=== PATIENT | male | born 1980 | race African-American/Black ===

== ENCOUNTER 2024-10-30 20:16 | Inpatient (IN) ==
--- NOTE | 2024-10-30 20:33 | Emergency Department Note ---
History of Present Illness General Chief complaint: Shoulder Dislocation Stated complaint: DISLOCATED SHOULDER (R) Time Seen by Provider: 10/30/24 20:23 History of Present Illness Maximum Pain Intensity: 10 This is a 43-year-old male that presents to the emergency department via private vehicle accompanied by correctional supply supervisor x 2 with complaints of "right shoulder pain". Patient currently incarcerated at local [facility] correctional facility. Patient notes that he was in the yard, working out doing bench presses. He felt a pop in the right shoulder. Since that time he notes progressive right shoulder pain now to a point where the pain is a 10/10 in the right shoulder. He has tried Motrin with minimal relief. No numbness or tingling. No chest pain or shortness of breath. No fevers or chills. Home Medications Medication Instructions Recorded Confirmed Type ascorbic acid (vitamin C) 500 mg 500 mg PO DAILY 10/31/24 10/31/24 History tablet (Vitamin C) budesonide-formoterol HFA 160 2 puff inhalation BID 10/31/24 10/31/24 History mcg-4.5 mcg/actuation aerosol inhaler (Symbicort) chlorthalidone 25 mg tablet 25 mg PO DAILY 10/31/24 10/31/24 History Allergies Allergy/AdvReac Type Severity Reaction Status Date / Time No Known Allergies Allergy Verified 10/30/24 20:46 Past Med/Surg History Problem List (Updated 10/31/24 @ 03:33 by Bandar Hart PA-C) Elevated AST (SGOT) (Acute) Elevated CK (Acute) Acute pain of right shoulder (Acute) Social History Smoking Status: Current every day smoker Tobacco Type: E-cigarettes / Vaping Second Hand Exposure: No; Do You Dip or Chew Tobacco: No; Tobacco Cessation Education Requested by Patient: No Hx Alcohol Use: No Hx Substance Use: No Preferred Language: Mongolian Communication Ability: Effective Dog Bather Required: No Beliefs That Will Affect Care: None Current Living Situation Comment: [facility] correction. Other Information That Helps Us Care for You: No Feels Safe at Home: Yes Safety Concerns: Feels Safe At This Time Assistive Devices: None Review of Systems A total of 10 systems reviewed and were otherwise negative Physical Exam Vital Signs Vital Signs - 24 hr 10/30/24 20:19 10/31/24 00:00 10/31/24 00:30 Temperature 36.5 C Temperature Source Temporal Artery Scan Pulse Rate 66 Pulse Rate [Finger] 56 L Respiratory Rate 18 16 Respiratory Effort / Characteristics Non-Labored Spontaneous Non-Labored Spontaneous Respiratory Depth Normal Normal Respiratory Pattern Regular Regular Blood Pressure 140/94 Blood Pressure [Left Arm] 135/95 Blood Pressure Mean 109 Blood Pressure Mean [Left Arm] 108 Pulse Oximetry 95 97 97 Oxygen Delivery Method Room Air Room Air Room Air Sepsis Recent Fever Within 48 Hours No Sepsis New/Unexplained Change in Mental Status N/A Sepsis Action Taken by Nursing No Action Required 10/31/24 01:00 Temperature Temperature Source Pulse Rate Pulse Rate [Finger] 60 Respiratory Rate 18 Respiratory Effort / Characteristics Non-Labored Spontaneous Respiratory Depth Normal Respiratory Pattern Regular Blood Pressure Blood Pressure [Left Arm] 142/87 H Blood Pressure Mean Blood Pressure Mean [Left Arm] 105 Pulse Oximetry 94 Oxygen Delivery Method Room Air Sepsis Recent Fever Within 48 Hours Sepsis New/Unexplained Change in Mental Status Sepsis Action Taken by Nursing VITAL SIGNS - Vital signs and nursing notes were reviewed. Hypertensive, otherwise stable and afebrile. GENERAL -43-year-old male appearing his stated age who is in no acute distress. Communicates well with provider and answers questions appropriately. SKIN - Without rashes. No meningeal or petechial rash. The musculature overlying the right shoulder region is tense without break in the integument. Tattoo to the right deltoid region noted. HEAD - NC/AT. EYES - PERRL with EOMI bilaterally. Sclera anicteric. EARS - No deformities of external structures noted on gross examination bilaterally. NOSE - Midline and without cyanosis. No epistaxis or purulent drainage noted. MOUTH/OROPHARYNX - Without perioral cyanosis. NECK - Neck with FROM. No nuchal rigidity. LUNGS - CTA CARDIAC - RRR EXTREMITIES - No clubbing or peripheral cyanosis. Patient holds the right arm in a position of comfort with the right elbow flexed at 90 degrees across the abdomen. There is tenderness to palpation overlying the right deltoid, right superior trapezius region. There is no evidence of dislocation to the right shoulder. Right clavicle region nontender. Patient with decreased active range of motion of the right shoulder secondary to pain. 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 Right radial pulse within normal limits. +5/5 strength noted in UE/LE bilaterally. NEUROLOGIC -sensory intact to light touch throughout the right upper extremity without deficit. PSYCH -alert, oriented and pleasant on exam. Course Administered Medications Sodium Chloride (Nss) 1,000 mls @ 100 mls/hr IV .Q10H TORI Stop: 11/01/24 02:59 Last Admin: 10/31/24 02:40 Dose: 100 mls/hr Documented By: GHAZALA Oxycodone HCl (Oxycodone Hcl Ir 5 Mg Tab (Immediate Release)) 5 - 10 mg PO QID PRN PRN Reason: Pain Stop: 11/14/24 01:48 Last Admin: 10/31/24 03:10 Dose: 10 mg Documented By: GHAZALA Discontinued Medications Hydromorphone HCl (Hydromorphone Inj 1 Mg/Ml Syringe) 1 mg IV NOW STA Stop: 10/30/24 21:34 Last Admin: 10/30/24 21:59 Dose: 1 mg Documented By: ARNULFO Sodium Chloride (Nss) 1,000 mls @ 999 mls/hr IV .Q1H1M ONE Stop: 10/31/24 01:09 Last Infusion: 10/31/24 01:11 Dose: Infused Documented By: Admin: 10/31/24 00:13 Dose: 999 mls/hr Documented By: TAYLOR Sodium Chloride (Nss) 500 mls @ 500 mls/hr IV .Q1H ONE Stop: 10/31/24 02:02 Last Infusion: 10/31/24 02:02 Dose: Infused Documented By: Admin: 10/31/24 01:10 Dose: 500 mls/hr Documented By: TAYLOR Sodium Chloride (Nss) 1,000 mls @ 999 mls/hr IV .Q1H1M ONE Stop: 10/31/24 02:21 Last Admin: 10/31/24 01:27 Dose: Not Given Documented By: TAYLOR Ketorolac Tromethamine (Ketorolac Tromethamine 15 Mg/Ml Vial) 15 mg IV NOW ONE Stop: 10/30/24 23:29 Last Admin: 10/30/24 23:33 Dose: 15 mg Documented By: TAYLOR Morphine Sulfate (Morphine Sulfate 4 Mg/Ml 1 Ml Carp\\Vial) 4 mg IV NOW STA Stop: 10/31/24 01:20 Last Admin: 10/31/24 01:27 Dose: 4 mg Documented By: TAYLOR Oxycodone HCl (Oxycodone Hcl Ir 5 Mg Tab (Immediate Release)) 5 mg PO NOW STA Stop: 10/30/24 20:33 Last Admin: 10/30/24 20:39 Dose: 5 mg Documented By: MAURILIO Medical Decision Making Laboratory Data 10/30/24 21:56 10/30/24 21:56 Lab Results 10/30/24 Range/Units 21:56 WBC 11.85 H (4.8-10.8) K/ul RBC 5.25 (4.70-6.10) M/uL Hgb 15.4 (14.0-18.0) g/dl Hct 45.9 (42.0-52.0) % MCV 87.4 (80.0-100.0) fL MCH 29.3 (25.0-34.0) pg MCHC 33.6 (32.0-36.0) g/dL RDW Std Deviation 42.0 (36.4-46.3) fL RDW Coeff of Avel 13.2 (11.5-14.5) % Plt Count 195 (130-400) K/uL MPV 10.6 (9.4-12.4) fL Immature Gran % (Auto) 0.3 % Neut % (Auto) 88.9 % Lymph % (Auto) 5.3 % [place] % (Auto) 5.0 % Eos % (Auto) 0.2 % Baso % (Auto) 0.3 % Neut # (Auto) 10.55 H (1.40-6.50) K/uL Lymph # (Auto) 0.63 L (1.20-3.40) K/uL [place] # (Auto) 0.59 (0.11-0.59) K/uL Eos # (Auto) 0.02 (0.00-0.50) K/uL Baso # (Auto) 0.03 (0.00-0.20) K/uL Immature Gran # (Auto) 0.03 (0.01-0.20) K/uL Sodium 138 (136-145) mmol/L Potassium 3.7 (3.5-5.1) mmol/L Chloride 103 (98-107) mmol/L Carbon Dioxide 31 (21-32) mmol/L Anion Gap 4 (3-11) BUN 12 (6-23) mg/dl Creatinine 1.34 (0.6-1.4) mg/dl Est Cr Clr Drug Dosing 98.9 ml/min eGFR 67.83 BUN/Creatinine Ratio 9.0 L (10-20) Glucose 100 H (70-99(Fasting)) mg/dl Calcium 9.5 (8.6-10.3) mg/dl Total Bilirubin 0.9 (0.2-1.0) mg/dl AST 137 H (13-39) U/L ALT 41 (7-52) U/L Alkaline Phosphatase 81 (34-104) U/L Total Creatine Kinase 49323 H (30-223) U/L Total Protein 8.3 (6.0-8.3) gm/dl Albumin 4.5 (3.4-5.0) gm/dl Globulin 3.8 (2.5-4.0) gm/dl Albumin/Globulin Ratio 1.2 (0.9-2) Imaging Data Radiologist's Impression: Shoulder X-Ray 10/30/24 20:22 Exam(s): XR SHOULDER, 2+ views EXAM: XR Right Shoulder Complete, 2 or More Views CLINICAL HISTORY: Reason for exam: right shoulder pain. TECHNIQUE: Two or more views of the right shoulder. COMPARISON: None FINDINGS: Bones/joints: No displaced fracture or dislocation identified. Joint space is maintained. No bony lesion. Soft tissues: Normal. No radiopaque foreign body identified. IMPRESSION: No displaced fracture or dislocation identified. Electronically signed by: Rain Tadeo M.D. 10/30/24 21:[address] 10/30/24 21:32 Exam(s): CT RIGHT SHOULDER Without Contrast EXAM: CT Right Upper Extremity Without Intravenous Contrast, Shoulder CLINICAL HISTORY: Reason for exam: R shoulder pain. TECHNIQUE: Axial computed tomography images of the right shoulder without intravenous contrast. CTDI is 28.17 mGy and DLP is 548.27 mGy-cm. Automated exposure control was utilized for the study. A dose lowering technique was utilized adhering to the principles of ALARA. COMPARISON: No relevant prior studies available. FINDINGS: Bones/joints: No fracture or malalignment. Glenohumeral joint space narrowing and small osteophyte along the posterior aspect of the glenoid. AC joint is unremarkable. No joint effusion. Soft tissues: Unremarkable. IMPRESSION: No fracture or malalignment. Electronically signed by: Junior Martínez MD 10/30/24 22:39 PM MDM Narrative Patient was seen and evaluated as above in room D09. Review was performed of triage nursing notes and vital signs. Patient presents to us today for evaluation of right shoulder pain. This has been progressively worsening following injury during bench pressing today. On my examination the patient is quite tender throughout the right shoulder with minimal active movement of the right shoulder secondary to pain. No neurovascular deficits. No chest pain or shortness of breath. Options of care were discussed with the patient. Initially I started with a right shoulder x-ray as well as oral oxycodone. Patient was reevaluated with no improvement. Per my interpretation the x-ray was negative for acute process. Patient continued with significant pain. Patient was sent for CT scan of the right shoulder and at that time IV access was established and he was given IV Dilaudid for pain. He was reevaluated with some improvement. I then ordered IV Toradol as it was felt that the benefit outweighed risk. CT returned negative for fracture or dislocation. Although patient's symptoms may be secondary to rotator cuff injury/sprain/strain within the right shoulder during benchpress today, other etiologies such as rhabdomyolysis considered. After further questioning, patient does note that today's activity was more than normal with higher weight and higher repetitions as far as workout. Laboratory studies were added. Mild leukocytosis 11.85 without infectious findings on exam. No anemia. Metabolic panel does reveal transaminitis with AST at 137. Patient denies any acetaminophen use[place] [address]. Although this may be secondary to muscle injury from trauma/injury today, developing rhabdomyolysis is also possible. At this time we will proceed with inpatient management, IV hydration. IV fluids ordered. I also added a urine which did show 1+ ketones, 3+ blood and 1+ protein. Case discussed with the hospitalist service. Please refer to further documentation regarding his stay. Arm sling was applied. GCS: 15 In the evaluation and treatment of this patient the following differential diagnoses were entertained: Fracture, dislocation, subluxation, contusion, sprain, strain, rhabdomyolysis, among others Impression & Plan Acute pain of right shoulder, Elevated CK, Elevated AST (SGOT) Discharge Plan Visit Data Chief Complaint: Shoulder Dislocation Stated Complaint: DISLOCATED SHOULDER (R) ED Provider: Rogerio Trent ED Midlevel Provider: Bandar Hart Discharge Problem: Acute pain of right shoulder, Elevated CK, Elevated AST (SGOT) Patient Disposition: Admitted As Inpatient Condition: Good Discharge Instructions Interventions: ED Discharge Assessment Last Done: 10/31/24 02:19
[2024-10-30] MEDS: oxyCODONE HCL IR 5 MG TAB (IMMEDIATE RELEASE) PO STA (20:39)
--- NOTE | 2024-10-30 21:16 | XRay Report ---
Exam(s): XR SHOULDER, 2+ views EXAM: XR Right Shoulder Complete, 2 or More Views CLINICAL HISTORY: Reason for exam: right shoulder pain. TECHNIQUE: Two or more views of the right shoulder. COMPARISON: None FINDINGS: Bones/joints: No displaced fracture or dislocation identified. Joint space is maintained. No bony lesion. Soft tissues: Normal. No radiopaque foreign body identified. IMPRESSION: No displaced fracture or dislocation identified. Electronically signed by: Rain Tadeo M.D. 10/30/24 21:15 PM
[2024-10-30] MEDS: HYDROmorphone INJ 1 MG/ML SYRINGE IV STA (21:59)
[2024-10-30 22:14] LABS: Basophils # (auto) 0.03 K/uL (0.00-0.20); Basophils % (auto) 0.3 %; Eosinophils # (auto) 0.02 K/uL (0.00-0.50); Eosinophils % (auto) 0.2 %; Hematocrit (blood only) 45.9 % (42.0-52.0); Hemoglobin 15.4 g/dl (14.0-18.0); Immature Granulocytes # (auto) 0.03 K/uL (0.01-0.20); Immature Granulocytes % (auto) 0.3 %; Lymphocytes # (auto) 0.63 K/uL (1.20-3.40); Lymphocytes % (auto) 5.3 %; Mean Corpuscular Hemoglobin 29.3 pg (25.0-34.0); Mean Corpuscular Hgb Conc 33.6 g/dL (32.0-36.0); Mean Corpuscular Volume 87.4 fL (80.0-100.0); Mean Platelet Volume 10.6 fL (9.4-12.4); Monocytes # (auto) 0.59 K/uL (0.11-0.59); Neutrophils # (auto) 10.55 K/uL (1.40-6.50); Neutrophils % (auto) 88.9 %; Platelet Count 195 K/uL (130-400); RDW Coefficient of Variation 13.2 % (11.5-14.5); Red Blood Count 5.25 M/uL (4.70-6.10); White Blood Count 11.85 K/ul (4.8-10.8)
[2024-10-30 22:29] LABS: Albumin Globulin Ratio 1.2 (0.9-2); Albumin Level 4.5 gm/dl (3.4-5.0); Bilirubin,Total 0.9 mg/dl (0.2-1.0); Calcium 9.5 mg/dl (8.6-10.3); Creatinine Clr Calc Pharmacy 98.9 ml/min; Globulin 3.8 gm/dl (2.5-4.0); Potassium 3.7 mmol/L (3.5-5.1); Total Protein 8.3 gm/dl (6.0-8.3)
--- NOTE | 2024-10-30 22:40 | CT Scan Report ---
Exam(s): CT RIGHT SHOULDER Without Contrast EXAM: CT Right Upper Extremity Without Intravenous Contrast, Shoulder CLINICAL HISTORY: Reason for exam: R shoulder pain. TECHNIQUE: Axial computed tomography images of the right shoulder without intravenous contrast. CTDI is 28.17 mGy and DLP is 548.27 mGy-cm. Automated exposure control was utilized for the study. A dose lowering technique was utilized adhering to the principles of ALARA. COMPARISON: No relevant prior studies available. FINDINGS: Bones/joints: No fracture or malalignment. Glenohumeral joint space narrowing and small osteophyte along the posterior aspect of the glenoid. AC joint is unremarkable. No joint effusion. Soft tissues: Unremarkable. IMPRESSION: No fracture or malalignment. Electronically signed by: Junior Martínez MD 10/30/24 22:39 PM
[2024-10-30] MEDS: KETOROLAC TROMETHAMINE 15 MG/ML VIAL IV ONE (23:33)
[2024-10-31] MEDS: SODIUM CHLORIDE 0.9% 1,000 ML IV ONE ×2 (00:13→01:27)
[2024-10-31] MEDS ORDERED: ACETAMINOPHEN 325 MG TAB PO PRN (01:03)
[2024-10-31] MEDS ORDERED: oxyCODONE HCL IR 5 MG TAB (IMMEDIATE RELEASE) PO PRN (01:03)
[2024-10-31] MEDS: SODIUM CHLORIDE 0.9% 500 ML IV ONE (01:10)
[2024-10-31] MEDS: MoRPHine SULFATE 4 MG/ML 1 ML CARP\\VIAL IV STA (01:27)
--- NOTE | 2024-10-31 01:47 | History & Physical Report ---
Date of Service October 31, 2024 Assessment & Plan (1) Rhabdomyolysis: Plan: Exercise-induced rhabdomyolysis hypertension, slightly elevated hyperlipidemia, not on statin Rx COPD, stable on regimen past tobacco abuse Admit to medical Monitor CPK response to IVF Analgesia DVT prophylaxis. Lovenox subcu Full code Text document was generated using [employer] voice recognition software. It may contain grammatical or spelling errors. Kindly contact undersigned for clarification of any documentation item in question. History of Present Illness Chief Complaint: worsening Right shoulder pain Primary Care Provider: SHEILA Moore History obtained from patient and records. Medical history significant for hypertension, hyperlipidemia, COPD, past tobacco abuse. Patient noted worsening achy right shoulder pain today while lifting weights. No headache, no chest pain, no SOB. No fever, no chills. Medical History as above Surgical History : Knee surgery, right arm surgery Family History : Heart disease Personal/Social history : Past tobacco abuse, no EtOH intake, [facility] inmate Allergies Allergy/AdvReac Type Severity Reaction Status Date / Time No Known Allergies Allergy Verified 10/30/24 20:46 Home Medications Medication Instructions Recorded Confirmed Type ascorbic acid (vitamin C) 500 mg 500 mg PO DAILY 10/31/24 10/31/24 History tablet (Vitamin C) budesonide-formoterol HFA 160 2 puff inhalation BID 10/31/24 10/31/24 History mcg-4.5 mcg/actuation aerosol inhaler (Symbicort) chlorthalidone 25 mg tablet 25 mg PO DAILY 10/31/24 10/31/24 History Past Med/Surg History Problem List (Updated 10/31/24 @ 09:31 by Angel Howell MD) Rhabdomyolysis Elevated AST (SGOT) (Acute) Elevated CK (Acute) Acute pain of right shoulder (Acute) Social History Smoking Status: Current every day smoker Tobacco Type: E-cigarettes / Vaping Second Hand Exposure: No; Do You Dip or Chew Tobacco: No; Tobacco Cessation Education Requested by Patient: No Hx Alcohol Use: No Hx Substance Use: No Preferred Language: Thai Communication Ability: Effective 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. Other Information That Helps Us Care for You: No Feels Safe at Home: Yes Safety Concerns: Feels Safe At This Time Assistive Devices: None Review of Systems Review of Systems: As per HPI, all other systems reviewed and negative Physical Exam Physical Exam: GENERAL: Slightly uncomfortable, obese, no respiratory distress SKIN: Normal color, warm HEENT: Alopecia, pink palpebral conjunctivae, no ptosis, dry buccal mucosa NECK : Supple, short neck, no tenderness CHEST : CTA, no tenderness HEART : Bradycardic, no obvious murmurs ABDOMEN: Some distention, nontender EXTREMITIES : RUE sling, no LE swelling/tenderness, palpable pulses, no other conspicuous deformities noted NEUROLOGIC : Coherent, no facial asymmetry, no other gross focality Results & Data Results & Data Vital Signs (Past 12 Hours) Vital Signs Temp Pulse Pulse Resp BP BP Pulse Ox 10/31/24 01:00 60 18 142/87 H 94 10/31/24 00:30 56 L 16 135/95 97 10/31/24 00:00 97 10/30/24 20:19 36.5 C 66 18 140/94 95 O2 Del Method 10/31/24 01:00 Room Air 10/31/24 00:30 Room Air 10/31/24 00:00 Room Air 10/30/24 20:19 Room Air Laboratory Results Laboratory Results WBC 11.85 K/ul (4.8-10.8) H 10/30/24 21:56 RBC 5.25 M/uL (4.70-6.10) 10/30/24 21:56 Hgb 15.4 g/dl (14.0-18.0) 10/30/24 21:56 Hct 45.9 % (42.0-52.0) 10/30/24 21:56 MCV 87.4 fL (80.0-100.0) 10/30/24 21:56 MCH 29.3 pg (25.0-34.0) 10/30/24 21:56 MCHC 33.6 g/dL (32.0-36.0) 10/30/24 21:56 RDW Std Deviation 42.0 fL (36.4-46.3) 10/30/24 21:56 RDW Coeff of Avel 13.2 % (11.5-14.5) 10/30/24 21:56 Plt Count 195 K/uL (130-400) 10/30/24 21:56 MPV 10.6 fL (9.4-12.4) 10/30/24 21:56 Immature Gran % (Auto) 0.3 % 10/30/24 21:56 Neut % (Auto) 88.9 % 10/30/24 21:56 Lymph % (Auto) 5.3 % 10/30/24 21:56 [place] % (Auto) 5.0 % 10/30/24 21:56 Eos % (Auto) 0.2 % 10/30/24 21:56 Baso % (Auto) 0.3 % 10/30/24 21:56 Neut # (Auto) 10.55 K/uL (1.40-6.50) H 10/30/24 21:56 Lymph # (Auto) 0.63 K/uL (1.20-3.40) L 10/30/24 21:56 [place] # (Auto) 0.59 K/uL (0.11-0.59) 10/30/24 21:56 Eos # (Auto) 0.02 K/uL (0.00-0.50) 10/30/24 21: Baso # (Auto) 0.03 K/uL (0.00-0.20) 10/30/24 21:56 Immature Gran # (Auto) 0.03 K/uL (0.01-0.20) 10/30/24 21:56 Sodium 138 mmol/L (136-145) 10/30/24 21:56 Potassium 3.7 mmol/L (3.5-5.1) 10/30/24 21:56 Chloride 103 mmol/L (98-107) 10/30/24 21:56 Carbon Dioxide 31 mmol/L (21-32) 10/30/24 21:56 Anion Gap 4 (3-11) 10/30/24 21:56 BUN 12 mg/dl (6-23) 10/30/24 21:56 Creatinine 1.34 mg/dl (0.6-1.4) 10/30/24 21:56 Est Cr Clr Drug Dosing 98.9 ml/min 10/30/24 21:56 eGFR 67.83 10/30/24 21:56 BUN/Creatinine Ratio 9.0 (10-20) L 10/30/24 21:56 Glucose 100 mg/dl (70-99(Fasting)) H 10/30/24 21:56 Calcium 9.5 mg/dl (8.6-10.3) 10/30/24 21:56 Total Bilirubin 0.9 mg/dl (0.2-1.0) 10/30/24 21:56 AST 137 U/L (13-39) H 10/30/24 21:56 ALT 41 U/L (7-52) 10/30/24 21:56 Alkaline Phosphatase 81 U/L (34-104) 10/30/24 21:56 Total Creatine Kinase 76533 U/L (30-223) H 10/30/24 21:56 Total Protein 8.3 gm/dl (6.0-8.3) 10/30/24 21:56 Albumin 4.5 gm/dl (3.4-5.0) 10/30/24 21:56 Globulin 3.8 gm/dl (2.5-4.0) 10/30/24 21:56 Albumin/Globulin Ratio 1.2 (0.9-2) 10/30/24 21:56 Impressions Shoulder X-Ray 10/30/24 20:22 Exam(s): XR SHOULDER, 2+ views EXAM: XR Right Shoulder Complete, 2 or More Views CLINICAL HISTORY: Reason for exam: right shoulder pain. TECHNIQUE: Two or more views of the right shoulder. COMPARISON: None FINDINGS: Bones/joints: No displaced fracture or dislocation identified. Joint space is maintained. No bony lesion. Soft tissues: Normal. No radiopaque foreign body identified. IMPRESSION: No displaced fracture or dislocation identified. Electronically signed by: Rain Tadeo M.D. 10/30/24 21:[address] 10/30/24 21:32 Exam(s): CT RIGHT SHOULDER Without Contrast EXAM: CT Right Upper Extremity Without Intravenous Contrast, Shoulder CLINICAL HISTORY: Reason for exam: R shoulder pain. TECHNIQUE: Axial computed tomography images of the right shoulder without intravenous contrast. CTDI is 28.17 mGy and DLP is 548.27 mGy-cm. Automated exposure control was utilized for the study. A dose lowering technique was utilized adhering to the principles of ALARA. COMPARISON: No relevant prior studies available. FINDINGS: Bones/joints: No fracture or malalignment. Glenohumeral joint space narrowing and small osteophyte along the posterior aspect of the glenoid. AC joint is unremarkable. No joint effusion. Soft tissues: Unremarkable. IMPRESSION: No fracture or malalignment. Electronically signed by: Junior Martínez MD 10/30/24 22:39 PM
[2024-10-31 02:28] LABS: Appearance Urine Clear (Clear); Bacteria Urine Automated None Seen (None Seen); Bilirubin Urine Negative (Negative); Blood Urine 3+ (Negative); Cast Urine Automated 0-2 /lpf (0-2); Color Urine Yellow; Epithelial Cell Urine Auto 0-2 /hpf (0-2); Glucose Urine UA Negative (Negative); Ketones Urine 1+ (Negative); Leukocyte Esterase Urine Negative (Negative); Nitrite Urine Negative (Negative); Protein Urine 1+ (Negative); RBC Urine Automated 0-2 /hpf (0-2); Specific Gravity Urine 1.029 (1.000-1.030); Urobilinogen Urine Negative (Negative); WBC Urine Automated 0-5 /hpf (0-5); pH Urine 5.5 (4.5-7.5)
[2024-10-31] MEDS: SODIUM CHLORIDE 0.9% 1,000 ML IV SCH (02:40)
[2024-10-31] MEDS: oxyCODONE HCL IR 5 MG TAB (IMMEDIATE RELEASE) PO PRN (03:10)
[2024-10-31] MEDS: KETOROLAC TROMETHAMINE 15 MG/ML VIAL IV PRN ×2 (06:18→18:31)
[2024-10-31 06:24] LABS: Basophils # (auto) 0.04 K/uL (0.00-0.20); Basophils % (auto) 0.4 %; Eosinophils # (auto) 0.17 K/uL (0.00-0.50); Eosinophils % (auto) 1.8 %; Hematocrit (blood only) 41.2 % (42.0-52.0); Hemoglobin 13.9 g/dl (14.0-18.0); Immature Granulocytes # (auto) 0.02 K/uL (0.01-0.20); Immature Granulocytes % (auto) 0.2 %; Lymphocytes # (auto) 1.39 K/uL (1.20-3.40); Lymphocytes % (auto) 14.9 %; Mean Corpuscular Hemoglobin 29.1 pg (25.0-34.0); Mean Corpuscular Hgb Conc 33.7 g/dL (32.0-36.0); Mean Corpuscular Volume 86.4 fL (80.0-100.0); Mean Platelet Volume 10.3 fL (9.4-12.4); Monocytes # (auto) 0.73 K/uL (0.11-0.59); Monocytes % (auto) 7.8 %; Neutrophils # (auto) 6.96 K/uL (1.40-6.50); Neutrophils % (auto) 74.9 %; Platelet Count 172 K/uL (130-400); RDW Coefficient of Variation 13.2 % (11.5-14.5); RDW Standard Deviation 41.5 fL (36.4-46.3); Red Blood Count 4.77 M/uL (4.70-6.10); White Blood Count 9.31 K/ul (4.8-10.8)
[2024-10-31 06:46] LABS: BUN Creatinine Ratio 8.9 (10-20); Calcium 8.4 mg/dl (8.6-10.3); Creatinine Clr Calc Pharmacy 121.9 ml/min; Potassium 3.5 mmol/L (3.5-5.1)
[2024-10-31 07:13] LABS: Albumin Globulin Ratio 1.3 (0.9-2); Albumin Level 3.9 gm/dl (3.4-5.0); Bilirubin,Total 0.9 mg/dl (0.2-1.0); Globulin 3.1 gm/dl (2.5-4.0)
[2024-10-31] MEDS: ACETAMINOPHEN 500 MG TAB PO PRN (07:32)
[2024-10-31] MEDS: MoRPHine SULFATE 2 MG/ML CARP IV PRN (08:10)
[2024-10-31] MEDS: ENOXAPARIN INJ 40 MG/0.4 ML SYR SQ SCH (08:13)
[2024-10-31] MEDS: ALBUT/IPRATROP 3MG/0.5MG NEB 3 ML VIAL NEB PRN (08:24)
--- NOTE | 2024-10-31 08:26 | Hospitalist Progress Note ---
Date of Service October 31, 2024 Assessment & Plan (1) Rhabdomyolysis: (2) Acute pain of right shoulder: Plan: Exercise-induced Acute Rhabdomyolysis Leukocytosis likely reactive--resolved CK levels elevated: 15K Continue aggressive IV fluids Monitor CK levels Renal function within normal limits AST slightly elevated likely due to rhabdo Monitor LFTs as well Hypertension Blood pressure elevated situational secondary to pain Not on any medications at baseline Monitor blood pressure Right shoulder pain ? Musculoskeletal Shoulder CT showed no acute fracture or malalignment Pain control as needed Consulted orthopedics given significant decreased ROM Hyperlipidemia not on statin COPD Past tobacco abuse Continue home inhalers Nebs as needed Saturating well on room air DVT Px: Lovenox SQ Code Status Full code Admission and Anticipated Discharge Date Admission Date: October 31, 2024 Subjective Patient is seen and examined at bedside Still having significant right shoulder pain which worsens with any activity Reports chronic cough Denies any chest pain, dyspnea, nausea, vomiting, abdominal pain No other complaints today Review of Systems Review of Systems: All systems reviewed & are unremarkable except as noted in Subjective Physical Exam Physical Exam: Physical Exam: Vitals signs as noted above General Appearance:Moderately built and nourished, no apparent distress Head: normocephalic, Atraumatic Eyes: normal inspection, EOMI Neck: supple, Trachea midline Respiratory/Chest: Decreased breath sounds, CTA, No accessory muscle use Cardiovascular: S1, S2, No murmur Abdomen/GI:Soft, Non tender, Bowel sounds present Extremities/Musculoskeletal:normal inspection, no edema, R shoulder tender, decreased ROM Neurologic/Psych:AAOX3, grossly no focal neurological deficits Skin: normal color, warm Results & Data Results & Data Vital Signs (Past 12 Hours) Vital Signs Temp Pulse Resp BP BP Pulse Ox O2 Del Method 10/31/24 07:26 37.1 C 49 L 16 163/78 H 97 Room Air 10/31/24 02:30 36.9 C 52 L 16 147/79 H 97 Room Air 10/31/24 01:00 60 18 142/87 H 94 Room Air 10/31/24 00:30 56 L 16 135/95 97 Room Air 10/31/24 00:00 97 Room Air Laboratory Results Short CBC 10/30/24 10/31/24 Range/Units 21:56 05:45 WBC 11.85 H 9.31 (4.8-10.8) K/ul Hgb 15.4 13.9 L (14.0-18.0) g/dl Hct 45.9 41.2 L (42.0-52.0) % Plt Count 195 172 (130-400) K/uL BMP 10/30/24 10/31/24 21:56 05:45 Sodium 138 137 Potassium 3.7 3.5 Chloride 103 106 Carbon Dioxide 31 27 BUN 12 10 Creatinine 1.34 1.12 Glucose 100 H 104 H Calcium 9.5 8.4 L Cardiac Enzymes 10/30/24 10/31/24 Range/Units 21:56 05:45 Total Creatine Kinase 95220 H 82220 H (30-223) U/L Liver Function 10/30/24 10/31/24 Range/Units 21:56 05:45 Total Bilirubin 0.9 0.9 (0.2-1.0) mg/dl AST 137 H 139 H (13-39) U/L ALT 41 38 (7-52) U/L Alkaline Phosphatase 81 72 (34-104) U/L Albumin 4.5 3.9 (3.4-5.0) gm/dl Urine 10/31/24 Range/Units 02:15 Urine Color Yellow Urine Appearance Clear (Clear) Urine pH 5.5 (4.5-7.5) Ur Specific [place] 1.029 (1.000-1.030) Urine Protein 1+ H (Negative) Urine Glucose (UA) Negative (Negative)
[2024-10-31] MEDS: FLUTICASONE/VILANTEROL 200/25MCG 14 PUFFS/INHALER INH SCH (09:03)
[2024-10-31] MEDS: LACTATED RINGER'S 1,000 ML IV SCH (09:03)
--- NOTE | 2024-10-31 13:58 | Orthopedic Consultation ---
Date of Service October 31, 2024 Assessment & Plan (1) Right shoulder pain: He was seen and examined by Dr Bruce today. He has right shoulder pain of unclear etiology. He has several month history of shoulder pain, but worsened yesterday. His AST and CK are elevated. We ordered a ESR and crp. We would recommend some toradol if he is able to tolerate this with his kidney function. If unable to use toradol then recommend some steroid. No surgical intervention planned at this point. History of Present Illness Reason for Consultation: . Requesting Physician: . Attending Physician: Porfirio Luke MD .43 year old patient admitted with rhabdomyolysis and we are consulted for right shoulder pain. He said he injured his shoulder initially 3 months ago. His shoulder popped at that time while doing a heavy bench press. He stopped bench pressing and has been doing some burpees. Yesterday he had increased right shoulder pain and was brought to the ER. Imaging including xray and ct scan was negative for fractures or dislocation. He did have elevated AST and CK and was admitted to the hospitalist service. Describes pain around the shoulder. Not really having any other pain. Allergies Allergy/AdvReac Type Severity Reaction Status Date / Time No Known Allergies Allergy Verified 10/30/24 20:46 Home Medications Medication Instructions Recorded Confirmed Type ascorbic acid (vitamin C) 500 mg 500 mg PO DAILY 10/31/24 10/31/24 History tablet (Vitamin C) budesonide-formoterol HFA 160 2 puff inhalation BID 10/31/24 10/31/24 History mcg-4.5 mcg/actuation aerosol inhaler (Symbicort) chlorthalidone 25 mg tablet 25 mg PO DAILY 10/31/24 10/31/24 History Past Med/Surg History Problem List Right shoulder pain Rhabdomyolysis Elevated AST (SGOT) (Acute) Elevated CK (Acute) Acute pain of right shoulder (Acute) Social History Smoking Status: Current every day smoker Tobacco Type: E-cigarettes / Vaping Second Hand Exposure: No; Do You Dip or Chew Tobacco: No; Tobacco Cessation Education Requested by Patient: No Hx Alcohol Use: No Hx Substance Use: No Preferred Language: Yakut Communication Ability: Effective Senior Wind Energy Consultant Required: No Beliefs That Will Affect Care: None Current Living Situation Comment: [facility] sn[facility]. Other Information That Helps Us Care for You: No Feels Safe at Home: Yes Safety Concerns: Feels Safe At This Time Assistive Devices: None Review of Systems All systems reviewed & are unremarkable except as noted in HPI & below. Physical Exam .alert, NAD Right shoulder: tender to palpation around the shoulder. He can actively move his arm but active motion is limited due to pain. We can passively range his arm overhead but he reports pain with any passive motion essentially. Negative belly press test. Compartments are soft. No significant swelling. Results & Data Results & Data Laboratory Results . Diagnostic Findings .xrays and ct scan of right shoulder negative for fracture or dislocation PG Care Time/CCT Total # of Minutes Spent Total Time Spent with Patient: Total time spent is greater than 50% in coordination of care (as documented) at patient's floor/unit and/or counseling patient: Coding Level of Care Code 76893 IN/OBS CONSULT LVL 2,35M Diagnoses Right shoulder pain M25.511
[2024-11-01] MEDS: NICOTINE 7 MG/24 HR TDSY TD SCH (06:24)
[2024-11-01 10:28] LABS: Hematocrit (blood only) 38.8 % (42.0-52.0); Hemoglobin 13.1 g/dl (14.0-18.0); Mean Corpuscular Hemoglobin 29.6 pg (25.0-34.0); Mean Corpuscular Hgb Conc 33.8 g/dL (32.0-36.0); Mean Corpuscular Volume 87.8 fL (80.0-100.0); Mean Platelet Volume 10.5 fL (9.4-12.4); Platelet Count 160 K/uL (130-400); RDW Coefficient of Variation 13.2 % (11.5-14.5); RDW Standard Deviation 42.7 fL (36.4-46.3); Red Blood Count 4.42 M/uL (4.70-6.10); White Blood Count 7.35 K/ul (4.8-10.8)
[2024-11-01 10:30] LABS: BUN Creatinine Ratio 7.3 (10-20); C Reactive Protein 1.96 mg/dl (0-0.5); Calcium 8.5 mg/dl (8.6-10.3); Creatinine Clr Calc Pharmacy 125.3 ml/min; Potassium 3.6 mmol/L (3.5-5.1)
[2024-11-01 10:48] LABS: Albumin Level 3.6 gm/dl (3.4-5.0); Bilirubin Direct 0.1 mg/dl (0-0.2); Bilirubin,Total 0.7 mg/dl (0.2-1.0); Total Protein 6.6 gm/dl (6.0-8.3)
[2024-11-01] MEDS: LACTATED RINGER'S 1,000 ML IV SCH (13:06)
--- NOTE | 2024-11-01 17:39 | Hospitalist Progress Note ---
Date of Service November 01, 2024 Assessment & Plan (1) Rhabdomyolysis: (2) Acute pain of right shoulder: Plan: Exercise-induced Acute Rhabdomyolysis Leukocytosis likely reactive--resolved CK levels elevated Continue aggressive IV fluids Monitor CK levels Renal function within normal limits AST slightly elevated likely due to rhabdo Monitor LFTs as well Continue current management Encouraged to increase oral fluid intake Will recheck CK levels tomorrow Hypertension Blood pressure elevated situational secondary to pain Not on any medications at baseline Monitor blood pressure Right shoulder pain ? Musculoskeletal Shoulder CT showed no acute fracture or malalignment Pain control as needed Consulted orthopedics given significant decreased ROM Right shoulder pain improving Monitor Hyperlipidemia not on statin COPD Past tobacco abuse Continue home inhalers Nebs as needed Saturating well on room air DVT Px: Lovenox SQ Code Status Full code Admission and Anticipated Discharge Date Admission Date: October 31, 2024 Subjective Patient is seen and examined at bedside Right shoulder pain much improved No new complaints today Denies any chest pain, dyspnea, nausea, vomiting, abdominal pain Review of Systems Review of Systems: All systems reviewed & are unremarkable except as noted in Subjective Physical Exam Physical Exam: Physical Exam: Vitals signs as noted above General Appearance:Moderately built and nourished, no apparent distress Head: normocephalic, Atraumatic Eyes: normal inspection, EOMI Neck: supple, Trachea midline Respiratory/Chest: Decreased breath sounds, CTA, No accessory muscle use Cardiovascular: S1, S2, No murmur Abdomen/GI:Soft, Non tender, Bowel sounds present Extremities/Musculoskeletal:normal inspection, no edema, R shoulder tender, decreased ROM Neurologic/Psych:AAOX3, grossly no focal neurological deficits Skin: normal color, warm Results & Data Results & Data Vital Signs (Past 12 Hours) Vital Signs Temp Pulse Resp BP Pulse Ox O2 Del Method 11/01/24 14:35 36.9 C 57 L 16 156/95 H 97 Room Air 11/01/24 07:09 36.6 C 55 L 18 139/85 96 Room Air Laboratory Results Short CBC 11/01/24 Range/Units 09:45 WBC 7.35 (4.8-10.8) K/ul Hgb 13.1 L (14.0-18.0) g/dl Hct 38.8 L (42.0-52.0) % Plt Count 160 (130-400) K/uL BMP 11/01/24 09:45 Sodium 137 Potassium 3.6 Chloride 105 Carbon Dioxide 29 BUN 8 Creatinine 1.09 Glucose 104 H Calcium 8.5 L Cardiac Enzymes 11/01/24 Range/Units 09:45 Total Creatine Kinase 17363 H (30-223) U/L Liver Function 11/01/24 Range/Units 09:45 Total Bilirubin 0.7 (0.2-1.0) mg/dl Direct Bilirubin 0.1 (0-0.2) mg/dl AST 186 H (13-39) U/L ALT 55 H (7-52) U/L Alkaline Phosphatase 64 (34-104) U/L Albumin 3.6 (3.4-5.0) gm/dl
[2024-11-01] MEDS: PROMETHAZINE 12.5 MG/50.5 ML BAG IV STA (20:48)
[2024-11-02 07:37] LABS: BUN Creatinine Ratio 6.7 (10-20); Calcium 8.7 mg/dl (8.6-10.3); Potassium 3.6 mmol/L (3.5-5.1)
[2024-11-02 08:00] LABS: Albumin Level 3.6 gm/dl (3.4-5.0); Bilirubin Direct 0.2 mg/dl (0-0.2); Total Protein 6.6 gm/dl (6.0-8.3)
[2024-11-02] MEDS: SODIUM CHLORIDE 0.9% 1,000 ML IV SCH (08:56)
--- NOTE | 2024-11-02 11:05 | Nephrology Consultation ---
Date of Consultation November 02, 2024 Assessment & Plan (1) Rhabdomyolysis: Sec to excessive benchpress and Injury to rt shoulder. CK is still rising and is now 32k+. AST is also high from same. Continue Aggressive IVF to have urine output close to 150--200ml/hr. Do need to document UO. for now continue NS at 200 ml/hr. Normal Lytes and normal renal function currently. If we start seeing dropping urine output then do add lasix iv also. Hold chlorthalidone. Currently getting toradol ( NSAID) also which maybe fine to use to avoid/lessen Opioid use. Plan time spent 52 mins History of Present Illness Attending Physician: Sagar Roper MD History of Present Illness 43/M came to the emergency department from local [facility]al [facility] with right shoulder pain. Patient notes that he was in the yard, working out doing bench presses with hevay load. He felt a pop in the right shoulder. Since that time he notes progressive severe right shoulder pain. He has tried Motrin with minimal relief. No numbness or tingling. No chest pain or shortness of breath. No fevers or chills. Found to have elevated CK of 15k and is still rising and now 32k+. getting NSS at 200 /hr now. So far normal renal function and normal Lytes. Vital signs are fine. Making lot of urine. has HTN ( takes Chlorthalidone) , Asthma otherwise no medical History . ROs--+ve for rt shoulder pain. otherwise 12 Systems reviewed and negative Exam: Physical Exam Physical Exam: GENERAL: In lot of pain. obese, no respiratory distress SKIN: Normal color, warm NECK : Supple, no tenderness CHEST : CTA, no tenderness HEART : Bradycardic, no obvious murmurs ABDOMEN: Some distention, nontender EXTREMITIES : No edema Allergies Allergy/AdvReac Type Severity Reaction Status Date / Time No Known Allergies Allergy Verified 10/30/24 20:46 Home Medications Medication Instructions Recorded Confirmed Type ascorbic acid (vitamin C) 500 mg 500 mg PO DAILY 10/31/24 10/31/24 History tablet (Vitamin C) budesonide-formoterol HFA 160 2 puff inhalation BID 10/31/24 10/31/24 History mcg-4.5 mcg/actuation aerosol inhaler (Symbicort) chlorthalidone 25 mg tablet 25 mg PO DAILY 10/31/24 10/31/24 History Patient History Social History Smoking Status: Current every day smoker Tobacco Type: E-cigarettes / Vaping Second Hand Exposure: No; Do You Dip or Chew Tobacco: No; Tobacco Cessation Education Requested by Patient: No Hx Alcohol Use: No Hx Substance Use: No Preferred Language: Guyanese Communication Ability: Effective Semiautomatic Taper Operator Required: No Beliefs That Will Affect Care: None Current Living Situation Comment: [facility]. Other Information That Helps Us Care for You: No Feels Safe at Home: Yes Safety Concerns: Feels Safe At This Time Assistive Devices: None Results & Data Vital Signs (Past 12 Hours) Vital Signs Temp Pulse Resp BP Pulse Ox O2 Del Method 11/02/24 07:28 36.8 C 60 18 144/80 H 93 Room Air 11/02/24 06:26 55 L 18 96 Room Air
--- NOTE | 2024-11-02 15:36 | XRay Report ---
XR chest 1V portable CLINICAL HISTORY: productive cough, r/o pneumonia COMPARISON STUDY: None FINDINGS: Heart size and pulmonary vasculature are normal. No effusion, consolidation, or pneumothora x. IMPRESSION: No pneumonia seen. ACT 112: Negative or not required by law. Electronically signed by: Erwin Avilez M.D. 11/02/2024 3:35 PM
--- NOTE | 2024-11-02 16:38 | Hospitalist Progress Note ---
Date of Service November 02, 2024 Assessment & Plan (1) Rhabdomyolysis: (2) Acute pain of right shoulder: Plan: per previous hospitalist notes with addendum: Exercise-induced Acute Rhabdomyolysis Leukocytosis likely reactive--resolved CK levels elevated Continue aggressive IV fluids Monitor CK levels Renal function within normal limits AST slightly elevated likely due to rhabdo Monitor LFTs as well Continue current management Encouraged to increase oral fluid intake Will recheck CK levels tomorrow 11/02 CPK continues to trend up, 30K Renal function remains normal Change IV fluids from LR to normal saline at 200 cc/h Monitor I's and O's Nephrology service consulted Acute sinusitis Associated with yellow drainage positive sinus tenderness No crackles or wheezing on exam Chest x-ray no pneumonia check sputum culture Augmentin twice daily Hypertension Blood pressure elevated situational secondary to pain Not on any medications at baseline Monitor blood pressure Right shoulder pain ? Musculoskeletal Shoulder CT showed no acute fracture or malalignment Pain control as needed Consulted orthopedics given significant decreased ROM Right shoulder pain improving - awaiting Ortho recommendations add Lidoderm patch Hyperlipidemia not on statin COPD Past tobacco abuse Continue home inhalers Nebs as needed Saturating well on room air DVT Px: Lovenox SQ Code Status Full code Admission and Anticipated Discharge Date Admission Date: October 31, 2024 Subjective follow-up for rhabdomyolysis, etc. Seen resting in bed, officers at the bedside Patient reports cough productive of yellow, thick sputum associated with nasal congestion Has occasional chills, no shortness of breath Still having right shoulder pain, Can barely move right arm No other new symptoms Review of Systems Review of Systems: all noted and negative except for above Physical Exam Physical Exam: General- oriented x 3, not in distress, speaks in sentences with no effort or accessory muscle use face-positive frontal, maxillary sinus tenderness Eyes- anicteric throat-positive /moderate erythema, mild edema of oropharyngeal tonsils, no exudate Neck- no JVD Lungs- clear breath sounds bilaterally, no rales/wheezes Heart- normal rate, regular rhythm; no murmurs Abdomen- normal bowel sounds, nondistended, soft, nontender Extremities- no pretibial edema, no calf tenderness right shoulder- positive moderate to severe tenderness, very limited range of motion due to pain Neuro- alert, oriented x 3; no gross focal neurologic deficits Skin- warm & dry Results & Data Results & Data Vital Signs (Past 12 Hours) Vital Signs Temp Pulse Resp BP Pulse Ox O2 Del Method 11/02/24 07:28 36.8 C 60 18 144/80 H 93 Room Air 11/02/24 06:26 55 L 18 96 Room Air all noted and reviewed including below
[2024-11-02 17:26] LABS: Influenza A virus by PCR Negative (Neg); Influenza B virus by PCR Negative (Neg); RSV by PCR Negative (Neg); SARS CoV2 RNA(COVID-19) Ceph NEGATIVE (Negative)
[2024-11-02] MEDS: AMOXICILLIN/CLAVULANATE 875 MG TAB PO SCH (18:24)
[2024-11-02] MEDS: MoRPHine SULFATE 4 MG/ML 1 ML CARP\\VIAL IV STA (20:18)
[2024-11-02] MEDS ORDERED: DOXYCYCLINE HYCLATE 100 MG CAP PO SCH (21:00)
[2024-11-02] MEDS: DICLOFENAC SOD 1% GEL 100 GM TUBE EXT PRN (21:06)
[2024-11-03 08:46] LABS: Basophils # (auto) 0.04 K/uL (0.00-0.20); Basophils % (auto) 0.4 %; Eosinophils # (auto) 0.26 K/uL (0.00-0.50); Eosinophils % (auto) 2.5 %; Hematocrit (blood only) 37.5 % (42.0-52.0); Hemoglobin 12.9 g/dl (14.0-18.0); Immature Granulocytes # (auto) 0.03 K/uL (0.01-0.20); Immature Granulocytes % (auto) 0.3 %; Lymphocytes # (auto) 1.54 K/uL (1.20-3.40); Lymphocytes % (auto) 14.8 %; Mean Corpuscular Hemoglobin 29.7 pg (25.0-34.0); Mean Corpuscular Hgb Conc 34.4 g/dL (32.0-36.0); Mean Corpuscular Volume 86.4 fL (80.0-100.0); Mean Platelet Volume 10.2 fL (9.4-12.4); Monocytes # (auto) 0.68 K/uL (0.11-0.59); Monocytes % (auto) 6.5 %; Neutrophils # (auto) 7.86 K/uL (1.40-6.50); Neutrophils % (auto) 75.5 %; Platelet Count 163 K/uL (130-400); RDW Coefficient of Variation 12.9 % (11.5-14.5); RDW Standard Deviation 41.1 fL (36.4-46.3); Red Blood Count 4.34 M/uL (4.70-6.10); White Blood Count 10.41 K/ul (4.8-10.8)
[2024-11-03 09:04] LABS: BUN Creatinine Ratio 7.8 (10-20); Calcium 8.3 mg/dl (8.6-10.3); Creatinine Clr Calc Pharmacy 133.8 ml/min; Potassium 3.5 mmol/L (3.5-5.1)
[2024-11-03] MEDS: DICLOFENAC SOD 1% GEL 100 GM TUBE EXT SCH (14:35)
--- NOTE | 2024-11-03 18:55 | Hospitalist Progress Note ---
Date of Service November 03, 2024 Assessment & Plan (1) Rhabdomyolysis: (2) Acute pain of right shoulder: Plan: Exercise-induced Acute Rhabdomyolysis Leukocytosis likely reactive--resolved Renal function within normal limits AST slightly elevated likely due to rhabdo repat lfts and CPK in am, -CK down to 25K Nephrology on consult: continue normal saline at 200 cc/h Monitor I's and O's Acute sinusitis Associated with yellow drainage positive sinus tenderness No crackles or wheezing on exam Chest x-ray no pneumonia check sputum culture Augmentin twice daily Hypertension Blood pressure elevated situational secondary to pain Not on any medications at baseline Monitor blood pressure Right shoulder pain suspect Musculoskeletal Shoulder CT showed no acute fracture or malalignment Pain control as needed Consulted orthopedics given significant decreased ROM Right shoulder pain improving - awaiting Ortho recommendations continue lidocaine patch, schedule voltaren plan for steroid burst in am #Hyperlipidemia not on statin #COPD Past tobacco abuse Continue home inhalers Nebs as needed Saturating well on room air DVT Px: Lovenox SQ Code Status Full code Admission and Anticipated Discharge Date Admission Date: October 31, 2024 Subjective reports continued sore RUE Denies any other symptoms at this time to include chest pain, difficulty urination or other complaints Physical Exam Constitutional: WD/WN, vitals as above Respiratory: normal respiratory effort, lungs clear to auscultation Cardiovascular: RRR, no murmur, no edema Musculoskeletal: RUE tenderness along anterior/superior shoulder /w rotator cuff Results & Data Results & Data Vital Signs (Past 12 Hours) Vital Signs Temp Pulse Resp BP Pulse Ox O2 Del Method 11/03/24 14:56 37.3 C 66 18 170/73 H 97 Room Air 11/03/24 07:43 37.1 C 72 16 157/90 H 95 Room Air Laboratory Results Short CBC 11/03/24 Range/Units 08:05 WBC 10.41 (4.8-10.8) K/ul Hgb 12.9 L (14.0-18.0) g/dl Hct 37.5 L (42.0-52.0) % Plt Count 163 (130-400) K/uL BMP 11/03/24 08:05 Sodium 137 Potassium 3.5 Chloride 105 Carbon Dioxide 29 BUN 8 Creatinine 1.02 Glucose 114 H Calcium 8.3 L Cardiac Enzymes 11/03/24 Range/Units 08:05 Total Creatine Kinase 15658 H (30-223) U/L Medications Administered Home Medications Medication Instructions Recorded Confirmed Last Taken ascorbic acid (vitamin C) 500 mg 500 mg PO DAILY 10/31/24 10/31/24 Unknown tablet (Vitamin C) budesonide-formoterol HFA 160 2 puff inhalation BID 10/31/24 10/31/24 Unknown mcg-4.5 mcg/actuation aerosol inhaler (Symbicort) chlorthalidone 25 mg tablet 25 mg PO DAILY 10/31/24 10/31/24 Unknown Active Medications Generic Name Dose Route Start Last Admin Trade Name Freq PRN Reason Stop Dose Admin Acetaminophen 500 mg 10/31/24 01:49 11/02/24 04:35 Acetaminophen 500 Mg Tab PO 11/30/24 01:48 500 mg Q6H PRN Administration fever/pain Albuterol 3 ml 10/31/24 08:01 11/02/24 06:26 Albut/Ipratrop 3mg/0.5mg Neb 3 Ml Vial NEB 11/30/24 08:00 3 ml Q6R PRN Administration Shortness Of Breath Or Wheezing Protocol Amoxicillin/Clavulanate Potassium 1 tab 11/02/24 17:00 11/03/24 16:22 Amoxicillin/Clavulanate 875 Mg Tab PO 11/12/24 16:59 1 tab BIDM TORI Administration Protocol Diclofenac Sodium 2 gm 11/03/24 14:00 11/03/24 14:35 Diclofenac Sod 1% Gel 100 Gm Tube EXT 12/03/24 13:59 2 gm Q8H TORI Administration Protocol Enoxaparin Sodium 40 mg 10/31/24 09:00 11/03/24 07:35 Enoxaparin Inj 40 Mg/0.4 Ml Syr SQ 11/30/24 08:59 40 mg QAM TORI Administration Fluticasone/Vilanterol 1 puffs 10/31/24 09:00 11/03/24 07:34 Fluticasone/Vilanterol 200/25mcg 14 Puffs/Inhaler INH 11/30/24 08:59 1 puffs DAILY TORI Administration Protocol Ketorolac Tromethamine 15 mg 10/31/24 16:29 11/03/24 16:21 Ketorolac Tromethamine 15 Mg/Ml Vial IV 11/05/24 16:28 15 mg Q6H PRN Administration Mild-Mod Pain (Scale 1-6) Miscellaneous 1 each 11/02/24 08:59 11/03/24 07:35 Remove Nicoderm Patch N/A 12/02/24 08:58 1 each DAILY@0859 TORI Administration Morphine Sulfate 2 mg 10/31/24 08:00 11/03/24 17:50 Morphine Sulfate 2 Mg/Ml Carp IV 11/14/24 07:59 2 mg Q4H PRN Administration Moderate Pain (Scale 4, 5, 6) Nicotine 1 patch 11/01/24 05:55 11/03/24 07:34 Nicotine 7 Mg/24 Hr Tdsy TD 12/01/24 05:54 1 patch QAM TORI Administration Oxycodone HCl 5 - 10 mg 10/31/24 01:49 11/03/24 11:08 Oxycodone Hcl Ir 5 Mg Tab (Immediate Release) PO 11/14/24 01:48 10 mg QID PRN Administration Pain
[2024-11-03] MEDS: HYDROmorphone INJ 0.5 MG/0.5 ML SYR IV PRN (21:25)
[2024-11-03] MEDS: oxyCODONE/APAP 7.5/325MG TAB PO PRN (22:59)
[2024-11-03] MEDS: FLUTICASONE PROPIONATE NA SPR 16 GM BTL SCH (23:00)
[2024-11-04 06:21] LABS: Hematocrit (blood only) 38.6 % (42.0-52.0); Hemoglobin 13.2 g/dl (14.0-18.0); Mean Corpuscular Hemoglobin 29.8 pg (25.0-34.0); Mean Corpuscular Hgb Conc 34.2 g/dL (32.0-36.0); Mean Corpuscular Volume 87.1 fL (80.0-100.0); Mean Platelet Volume 9.8 fL (9.4-12.4); Platelet Count 168 K/uL (130-400); RDW Coefficient of Variation 12.8 % (11.5-14.5); Red Blood Count 4.43 M/uL (4.70-6.10); White Blood Count 9.29 K/ul (4.8-10.8)
[2024-11-04 06:37] LABS: BUN Creatinine Ratio 8.7 (10-20); Calcium 8.6 mg/dl (8.6-10.3); Creatinine Clr Calc Pharmacy 132.5 ml/min; Potassium 3.5 mmol/L (3.5-5.1)
[2024-11-04 07:03] LABS: Albumin Level 3.5 gm/dl (3.4-5.0); Bilirubin,Total 0.9 mg/dl (0.2-1.0); Globulin 3.4 gm/dl (2.5-4.0); Magnesium 1.7 mg/dl (1.7-2.4); Phosphorus 3.5 mg/dl (2.5-4.9); Total Protein 6.9 gm/dl (6.0-8.3)
[2024-11-04] MEDS: POTASSIUM CHLORIDE CRTAB 20 MEQ TABCR PO SCH (08:59)
[2024-11-04] MEDS ORDERED: methylPREDNISolone 4 MG TAB, 6 DAY TAPER PO SCH (09:30)
--- NOTE | 2024-11-04 10:08 | Hospitalist Progress Note ---
Date of Service November 04, 2024 Assessment & Plan (1) Rhabdomyolysis: (2) Acute pain of right shoulder: Plan: #Exercise-induced Acute Rhabdomyolysis #Transaminitis iso rhabdo Leukocytosis likely reactive--resolved Renal function within normal limits AST slightly elevated likely due to rhabdo repat [place]fts [place] [address] Nephrology on consult: plan to continue normal saline at 200 cc/h Monitor I's and O's Trend lfts #Acute sinusitis Associated with yellow drainage positive sinus tenderness No crackles or wheezing on exam Chest x-ray no pneumonia check sputum culture Augmentin twice daily #Hypertension Blood pressure elevated situational secondary to pain Not on any medications at baseline Monitor blood pressure #Right shoulder pain suspect Musculoskeletal Shoulder CT showed no acute fracture or malalignment Pain control as needed Consulted orthopedics given significant decreased ROM Right shoulder pain improving - awaiting Ortho recommendations continue lidocaine patch, schedule voltaren start steroid burst #Hyperlipidemia not on statin #COPD Past tobacco abuse Continue home inhalers Nebs as needed Saturating well on room air DVT Px: Lovenox SQ Code Status Full code I spent a total of 45 minutes coordinating, documenting, and providing care for this patient excluding time spent in the performance of separately billed services. Admission and Anticipated Discharge Date Admission Date: October 31, 2024 Subjective Reports some subjective improvement in RUE, however, still notably uncomfortable Agreed to steroid trial No other acute concerns this am Results & Data Results & Data Vital Signs (Past 12 Hours) Vital Signs Temp Pulse Resp BP Pulse Ox O2 Del Method 11/04/24 07:31 36.8 C 65 18 128/80 95 Room Air Laboratory Results Short CBC 11/04/24 Range/Units 05:57 WBC 9.29 (4.8-10.8) K/ul Hgb 13.2 L (14.0-18.0) g/dl Hct 38.6 L (42.0-52.0) % Plt Count 168 (130-400) K/uL BMP 11/04/24 05:57 Sodium 134 L Potassium 3.5 Chloride 102 Carbon Dioxide 31 BUN 9 Creatinine 1.03 Glucose 89 Calcium 8.6 Cardiac Enzymes 11/04/24 Range/Units 05:57 Total Creatine Kinase 49187 H (30-223) U/L Liver Function 11/04/24 Range/Units 05:57 Total Bilirubin 0.9 (0.2-1.0) mg/dl AST 221 H (13-39) U/L ALT 88 H (7-52) U/L Alkaline Phosphatase 72 (34-104) U/L Albumin 3.5 (3.4-5.0) gm/dl Medications Administered Home Medications Medication Instructions Recorded Confirmed Last Taken ascorbic acid (vitamin C) 500 mg 500 mg PO DAILY 10/31/24 10/31/24 Unknown tablet (Vitamin C) budesonide-formoterol HFA 160 2 puff inhalation BID 10/31/24 10/31/24 Unknown mcg-4.5 mcg/actuation aerosol inhaler (Symbicort) chlorthalidone 25 mg tablet 25 mg PO DAILY 10/31/24 10/31/24 Unknown Active Medications Generic Name Dose Route Start Last Admin Trade Name Freq PRN Reason Stop Dose Admin Acetaminophen 500 mg 10/31/24 01:49 11/02/24 04:35 Acetaminophen 500 Mg Tab PO 11/30/24 01:48 500 mg Q6H PRN Administration fever/pain Albuterol 3 ml 10/31/24 08:01 11/02/24 06:26 Albut/Ipratrop 3mg/0.5mg Neb 3 Ml Vial NEB 11/30/24 08:00 3 ml Q6R PRN Administration Shortness Of Breath Or Wheezing Protocol Amoxicillin/Clavulanate Potassium 1 tab 11/02/24 17:00 11/04/24 08:24 Amoxicillin/Clavulanate 875 Mg Tab PO 11/12/24 16:59 1 tab BIDM TORI Administration Protocol Diclofenac Sodium 2 gm 11/03/24 14:00 11/04/24 05:54 Diclofenac Sod 1% Gel 100 Gm Tube EXT 12/03/24 13:59 2 gm Q8H TORI Administration Protocol Enoxaparin Sodium 40 mg 10/31/24 09:00 11/04/24 08:24 Enoxaparin Inj 40 Mg/0.4 Ml Syr SQ 11/30/24 08:59 40 mg QAM TORI Administration Fluticasone Propionate 1 sprays 11/03/24 21:45 11/04/24 08:21 Fluticasone Propionate Na Spr 16 Gm Btl NA 12/03/24 21:44 1 sprays BID TORI Administration Fluticasone/Vilanterol 1 puffs 10/31/24 09:00 11/04/24 08:21 Fluticasone/Vilanterol 200/25mcg 14 Puffs/Inhaler INH 11/30/24 08:59 1 puffs DAILY TORI Administration Protocol Hydromorphone HCl 0.5 mg 11/03/24 20:37 11/04/24 08:20 Hydromorphone Inj 0.5 Mg/0.5 Ml Syr IV 11/17/24 20:36 0.5 mg Q4H PRN Administration Severe Pain (Scale 7, 8, 9,10) Ketorolac Tromethamine 15 mg 10/31/24 16:29 11/03/24 23:00 Ketorolac Tromethamine 15 Mg/Ml Vial IV 11/05/24 16:28 15 mg Q6H PRN Administration Mild-Mod Pain (Scale 1-6) Miscellaneous 1 each 11/02/24 08:59 11/04/24 08:25 Remove Nicoderm Patch N/A 12/02/24 08:58 1 each DAILY@0859 TORI Administration Nicotine 1 patch 11/01/24 05:55 11/04/24 08:24 Nicotine 7 Mg/24 Hr Tdsy TD 12/01/24 05:54 1 patch QAM TORI Administration Oxycodone/Acetaminophen 1 tab 11/03/24 20:37 11/04/24 05:52 Oxycodone/Apap 7.5/325mg Tab PO 11/17/24 20:36 1 tab Q6H PRN Administration Mod-Sev Pain (Scale 4-10) Potassium Chloride 40 meq 11/04/24 09:00 11/04/24 08:59 Potassium Chloride Crtab 20 Meq Tabcr PO 12/04/24 08:59 40 meq QAM TORI Administration
[2024-11-04] MEDS: SODIUM CHLORIDE 0.9% 1,000 ML IV SCH (10:36)
[2024-11-04] MEDS: methylPREDNISolone 4 MG TAB PO SCH ×3 (13:07→20:08)
--- NOTE | 2024-11-04 13:48 | Nephrology Progress Note ---
Date of Service November 04, 2024 Assessment & Plan (1) Rhabdomyolysis: Plan: Sec to excessive benchpress and Injury to rt shoulder. CK is Downtrending to 17,900+. AST is also high from same. Continue Aggressive IVF NS at 200 ml/hr. Normal Lytes and normal renal function currently. Hold chlorthalidone. Admission and Anticipated Discharge Date Admission Date: October 31, 2024 Subjective Seen for rhabdomyolysis. He feels fine. No shortness of breath. He has right shoulder pain. He is making urine and CK downtrending. Review of Systems 2 Review of Systems: All other systems were reviewed and negative except as noted in HPI Physical Exam 2 Physical Exam: General exam: Appears comfortable, no acute distress HEENT: Pupils are equal and reactive to light Neck: No JVD, neck is supple trachea is midline Respiratory system: Clear breath sounds bilaterally. Gastrointestinal: Abdomen is soft, non distended, non tender, bowel sounds are present CVS: Regular rate and rhythm. No murmurs, rubs or gallops Musculoskeletal: No joint or muscle tenderness Extremities: Non tender, no edema, peripheral pulses are present Neuro: Oriented, no tremors, no focal neurological deficits Skin: No rashes Results & Data Vital Signs (Past 12 Hours) Vital Signs Temp Pulse Resp BP Pulse Ox O2 Del Method 11/04/24 08:11 Room Air 11/04/24 07:31 36.8 C 65 18 128/80 95 Room Air Laboratory Results 11/04/24 05:57 11/04/24 05:57 WBC 9.29 RBC 4.43 L MCV 87.1 MCH 29.8 MCHC 34.2 RDW Std Deviation 41.0 RDW Coeff of Avel 12.8 Plt Count 168 MPV 9.8 Phosphorus 3.5 Albumin 3.5
[2024-11-05] MEDS: methylPREDNISolone 4 MG TAB PO SCH ×2 (06:10→20:04)
[2024-11-05 08:10] LABS: BUN Creatinine Ratio 9.8 (10-20); Calcium 8.3 mg/dl (8.6-10.3); Creatinine Clr Calc Pharmacy 148.4 ml/min; Potassium 4.3 mmol/L (3.5-5.1)
[2024-11-05] MEDS: amLODIPine BESYLATE 5 MG TAB PO SCH (08:55)
[2024-11-05] MEDS: LORazepam 0.5 MG TAB PO PRN (09:29)
--- NOTE | 2024-11-05 13:42 | Nephrology Progress Note ---
Date of Service November 05, 2024 Assessment & Plan (1) Rhabdomyolysis: Plan: Sec to excessive benchpress and Injury to rt shoulder. CK is Downtrending to 8,900+. AST is also high from same. Reducce IVF NS to 100 ml/hr. Normal Lytes and normal renal function currently. Hold chlorthalidone till outpatient follow up. BP is ok might not need it. Admission and Anticipated Discharge Date Admission Date: October 31, 2024 Subjective Seen for rhabdomyolysis. He feels better. Main complaint is right shoulder pain. No shortness of breath or leg swelling. CK downtrending. Review of Systems 2 Review of Systems: All other systems were reviewed and negative except as noted in HPI Physical Exam 2 Physical Exam: General exam: Appears comfortable, no acute distress HEENT: Pupils are equal and reactive to light Neck: No JVD, neck is supple trachea is midline Respiratory system: Clear breath sounds bilaterally. Gastrointestinal: Abdomen is soft, non distended, non tender, bowel sounds are present CVS: Regular rate and rhythm. No murmurs, rubs or gallops Musculoskeletal: No joint or muscle tenderness Extremities: Non tender, no edema, peripheral pulses are present Neuro: Oriented, no tremors, no focal neurological deficits Skin: No rashes Results & Data Vital Signs (Past 12 Hours) Vital Signs Temp Pulse Resp BP Pulse Ox O2 Del Method 11/05/24 08:09 36.7 C 57 L 18 123/71 95 Room Air 11/05/24 07:45 Room Air Laboratory Results 11/05/24 07:18
--- NOTE | 2024-11-05 13:59 | Hospitalist Progress Note ---
Date of Service November 05, 2024 Assessment & Plan (1) Rhabdomyolysis: (2) Acute pain of right shoulder: Plan: #Exercise-induced Acute Rhabdomyolysis #Transaminitis iso rhabdo Leukocytosis likely reactive--resolved Renal function within normal limits AST slightly elevated likely due to rhabdo repat lfts and CPK in am, -CK downtrending to 8917 Nephrology on consult: plan to continue normal saline, reducing to 100cc/hr Monitor I's and O's #Acute sinusitis Associated with yellow drainage positive sinus tenderness No crackles or wheezing on exam Chest x-ray no pneumonia check sputum culture Augmentin twice daily #Hypertension Blood pressure elevated situational secondary to pain started amlodipine #Right shoulder pain suspect Musculoskeletal Shoulder CT showed no acute fracture or malalignment Pain control as needed Consulted orthopedics given significant decreased ROM Right shoulder pain improving - awaiting Ortho recommendations continue lidocaine patch, schedule voltaren continue steroid burst MRI ordered #Hyperlipidemia not on statin #COPD Past tobacco abuse Continue home inhalers Nebs as needed Saturating well on room air DVT Px: Lovenox SQ Code Status Full code I spent a total of 55 minutes coordinating, documenting, and providing care for this patient excluding time spent in the performance of separately billed services. Admission and Anticipated Discharge Date Admission Date: October 31, 2024 Subjective Reporting ongoing RUE pain and discomfort with minimal improvement and limited mobility Reports feeling happy with improved CK and clinical progress but still frustrated by poor progress with his RUE Physical Exam Constitutional: WD/WN, vitals as above Respiratory: normal respiratory effort, lungs clear to auscultation Cardiovascular: RRR, no murmur, no edema Musculoskeletal: tenderness along deltoid R side Results & Data Results & Data Vital Signs (Past 12 Hours) Vital Signs Temp Pulse Resp BP Pulse Ox O2 Del Method 11/05/24 08:09 36.7 C 57 L 18 123/71 95 Room Air 11/05/24 07:45 Room Air Laboratory Results BMP 11/05/24 07:18 Sodium 136 Potassium 4.3 D Chloride 106 Carbon Dioxide 27 BUN 9 Creatinine 0.92 Glucose 111 H Calcium 8.3 L Cardiac Enzymes 11/05/24 Range/Units 07:18 Total Creatine Kinase 8917 H (30-223) U/L Medications Administered Home Medications Medication Instructions Recorded Confirmed Last Taken ascorbic acid (vitamin C) 500 mg 500 mg PO DAILY 10/31/24 10/31/24 Unknown tablet (Vitamin C) budesonide-formoterol HFA 160 2 puff inhalation BID 10/31/24 10/31/24 Unknown mcg-4.5 mcg/actuation aerosol inhaler (Symbicort) chlorthalidone 25 mg tablet 25 mg PO DAILY 10/31/24 10/31/24 Unknown Active Medications Generic Name Dose Route Start Last Admin Trade Name Freq PRN Reason Stop Dose Admin Acetaminophen 500 mg 10/31/24 01:49 11/02/24 04:35 Acetaminophen 500 Mg Tab PO 11/30/24 01:48 500 mg Q6H PRN Administration fever/pain Albuterol 3 ml 10/31/24 08:01 11/04/24 20:27 Albut/Ipratrop 3mg/0.5mg Neb 3 Ml Vial NEB 11/30/24 08:00 3 ml Q6R PRN Administration Shortness Of Breath Or Wheezing Protocol Amlodipine Besylate 10 mg 11/05/24 09:00 11/05/24 08:55 Amlodipine Besylate 5 Mg Tab PO 12/05/24 08:59 10 mg QAM TORI Administration Amoxicillin/Clavulanate Potassium 1 tab 11/02/24 17:00 11/05/24 07:45 Amoxicillin/Clavulanate 875 Mg Tab PO 11/12/24 16:59 1 tab BIDM TORI Administration Protocol Diclofenac Sodium 2 gm 11/03/24 14:00 11/05/24 13:04 Diclofenac Sod 1% Gel 100 Gm Tube EXT 12/03/24 13:59 Not Given Q8H TORI Protocol Enoxaparin Sodium 40 mg 10/31/24 09:00 11/05/24 07:46 Enoxaparin Inj 40 Mg/0.4 Ml Syr SQ 11/30/24 08:59 40 mg QAM TORI Administration Fluticasone Propionate 1 sprays 11/03/24 21:45 11/05/24 07:46 Fluticasone Propionate Na Spr 16 Gm Btl NA 12/03/24 21:44 1 sprays BID TORI Administration Fluticasone/Vilanterol 1 puffs 10/31/24 09:00 11/05/24 07:47 Fluticasone/Vilanterol 200/25mcg 14 Puffs/Inhaler INH 11/30/24 08:59 1 puffs DAILY TORI Administration Protocol Hydromorphone HCl 0.5 mg 11/03/24 20:37 11/05/24 13:08 Hydromorphone Inj 0.5 Mg/0.5 Ml Syr IV 11/17/24 20:36 0.5 mg Q4H PRN Administration Severe Pain (Scale 7, 8, 9,10) Sodium Chloride 1,000 mls @ 100 mls/hr 11/04/24 09:30 11/05/24 11:55 Nss IV 11/05/24 17:18 200 mls/hr .Q10H TORI Administration Ketorolac Tromethamine 15 mg 10/31/24 16:29 11/05/24 00:30 Ketorolac Tromethamine 15 Mg/Ml Vial IV 11/05/24 16:28 15 mg Q6H PRN Administration Mild-Mod Pain (Scale 1-6) Lorazepam 0.5 mg 10/31/24 01:50 11/05/24 09:29 Lorazepam 0.5 Mg Tab PO 11/30/24 01:49 0.5 mg TID PRN Administration Anxiety Methylprednisolone 8 mg 11/04/24 21:00 11/04/24 20:08 Methylprednisolone 4 Mg Tab PO 11/05/24 21:01 8 mg 2100 TORI Administration Methylprednisolone 4 mg 11/05/24 07:00 11/05/24 13:03 Methylprednisolone 4 Mg Tab PO 11/05/24 18:01 4 mg 0700,1300,1800 TORI Administration Miscellaneous 1 each 11/02/24 08:59 11/05/24 07:47 Remove Nicoderm Patch N/A 12/02/24 08:58 1 each DAILY@0859 TORI Administration Nicotine 1 patch 11/01/24 05:55 11/05/24 07:46 Nicotine 7 Mg/24 Hr Tdsy TD 12/01/24 05:54 1 patch QAM TORI Administration Oxycodone/Acetaminophen 1 tab 11/03/24 20:37 11/05/24 10:13 Oxycodone/Apap 7.5/325mg Tab PO 11/17/24 20:36 1 tab Q6H PRN Administration Mod-Sev Pain (Scale 4-10) Potassium Chloride 40 meq 11/04/24 09:00 11/05/24 07:45 Potassium Chloride Crtab 20 Meq Tabcr PO 12/04/24 08:59 40 meq QAM TORI Administration
[2024-11-05] MEDS: SODIUM CHLORIDE 0.9% 1,000 ML IV SCH (17:31)
[2024-11-06] MEDS: methylPREDNISolone 4 MG TAB PO SCH (08:59)
[2024-11-06 09:05] LABS: Hemoglobin 12.6 g/dl (14.0-18.0); Mean Corpuscular Hemoglobin 29.2 pg (25.0-34.0); Mean Corpuscular Hgb Conc 33.2 g/dL (32.0-36.0); Mean Corpuscular Volume 88.2 fL (80.0-100.0); Mean Platelet Volume 10.1 fL (9.4-12.4); Platelet Count 245 K/uL (130-400); RDW Coefficient of Variation 13.1 % (11.5-14.5); RDW Standard Deviation 42.7 fL (36.4-46.3); Red Blood Count 4.31 M/uL (4.70-6.10); White Blood Count 10.15 K/ul (4.8-10.8)
[2024-11-06 09:19] LABS: BUN Creatinine Ratio 10.9 (10-20); Calcium 8.5 mg/dl (8.6-10.3); Creatinine Clr Calc Pharmacy 135.2 ml/min; Potassium 4.1 mmol/L (3.5-5.1)
[2024-11-06] MEDS ORDERED: LORazepam 2 MG/1 ML VIAL IV PRN (09:57)
--- NOTE | 2024-11-06 10:28 | Nephrology Progress Note ---
Date of Service November 06, 2024 Assessment & Plan (1) Rhabdomyolysis: Plan: Sec to excessive benchpress and Injury to rt shoulder. CK is further downtrending to 4382 from peak value 10434 on 11/02. AST is also high from same. Calcium levels have been WNL; no e/o DIC. >stopped NS as CK now <5K >plan to restart chlorthalidone tomorrow or at d/c Will sign off. DX: exercise-induced rhabdomyolysis MED RECOMMENDATIONS: resume chlorthalidone at d/c F/U LABS: PCP/corrections team to check CK, CMP one week after d/c OTHER: consider reasonable limits on wt lifting and avoid NSAIDS F/U appts: routine hosp d/c w/ PCP; no nephro appt needed Admission and Anticipated Discharge Date Admission Date: October 31, 2024 Subjective no interval events; still some R shoulder pain; awaiting MRI Review of Systems 2 Review of Systems: All systems reviewed & are unremarkable except as noted in Subjective Physical Exam 2 Constitutional: well developed and well nourished Eyes: EOM intact bilaterally Respiratory: normal respiratory effort Auscultation: + diminished lung sounds Cardiovascular: Rate/Rhythm: regular rate and regular rhythm Extremities: n o edema Gastrointestinal (Abdomen): Inspection/Auscultation: normal bowel sounds P ercussion/Palpation: abdomen soft; abdomen nontender Musculoskeletal: Extremities: strength 5/5 throughout Skin: no rashes, warm and dry Neurologic: harper, fluent speech, no tremor Results & Data Vital Signs (Past 12 Hours) Vital Signs Temp Pulse Resp BP Pulse Ox O2 Del Method 11/06/24 07:10 36.8 C 57 L 18 145/82 H 97 Room Air Laboratory Results 11/06/24 08:48 11/06/24 08:48 CK 4382
--- NOTE | 2024-11-06 13:28 | Discharge Summary ---
Discharge Summary Date of Service November 06, 2024 Principal Dx & Hospital Course #1 = Principal Diagnosis (1) Rhabdomyolysis: (2) Acute pain of right shoulder: Mr. Shepherd is a 43 yo gentleman with medical history significant for hypertension, hyperlipidemia, COPD, past tobacco abuse was admitted for exercise induced rhabdomyolysis. CK peaked as high as 30,101. Nephrology consulted and patient managed with aggressive fluids. Patient noted to have RUE pain which was evaluated by ortho and recommended to do conservative management. Pain persisted and ordered MRI; however, following day patient reported improvement and declined imaging. On day of d/c, CK was <5K, patient was eating well and reporting improvement in symptoms. #Exercise-induced Acute Rhabdomyolysis #Transaminitis iso rhabdo Leukocytosis likely reactive--resolved Renal function within normal limits AST slightly elevated likely due to rhabdo repat lfts and CPK in am, -CK downtrending to 4382 Recommended slow introduction of activity #Acute sinusitis Associated with yellow drainage positive sinus tenderness No crackles or wheezing on exam completed ocurse #Hypertension Blood pressure elevated situational secondary to pain resume home chlorthalidone upon discharge #Right shoulder pain suspect rotator cuff suspect Musculoskeletal Shoulder CT showed no acute fracture or malalignment Pain control as needed Consulted orthopedics given significant decreased ROM Right shoulder pain improving - awaiting Ortho recommendations continue lidocaine patch, schedule voltaren continue steroid burst encourage PT as OP #Hyperlipidemia not on statin #COPD Past tobacco abuse Continue home inhalers Nebs as needed Saturating well on room air Notes For Next Care Provider Medication Changes From Visit 3 more days of steroid burst Oxycodone prn q 6 h for 4 more days Admission HPI Per Admitting Provider History obtained from patient and records. Medical history significant for hypertension, hyperlipidemia, COPD, past tobacco abuse. Patient noted worsening achy right shoulder pain today while lifting weights. No headache, no chest pain, no SOB. No fever, no chills. Medical History as above Surgical History : Knee surgery, right arm surgery Family History : Heart disease Personal/Social history : Past tobacco abuse, no EtOH intake, senior living inmate Admission Exam Per Admitting Provider GENERAL: Slightly uncomfortable, obese, no respiratory distress SKIN: Normal color, warm HEENT: Alopecia, pink palpebral conjunctivae, no ptosis, dry buccal mucosa NECK : Supple, short neck, no tenderness CHEST : CTA, no tenderness HEART : Bradycardic, no obvious murmurs ABDOMEN: Some distention, nontender EXTREMITIES : RUE sling, no LE swelling/tenderness, palpable pulses, no other conspicuous deformities noted NEUROLOGIC : Coherent, no facial asymmetry, no other gross focality Discharge Exam Constitutional WD/WN, vitals as above Respiratory normal respiratory effort, lungs clear to auscultation Cardiovascular RRR, no murmur, no edema Musculoskeletal RUE tenderness along deltoid, but lesser intensity than day prior Updated Medication List Medication Instructions Recorded Confirmed Type ascorbic acid (vitamin C) 500 mg 500 mg PO DAILY 10/31/24 10/31/24 History tablet (Vitamin C) budesonide-formoterol HFA 160 2 puff inhalation BID 10/31/24 10/31/24 History mcg-4.5 mcg/actuation aerosol inhaler (Symbicort) chlorthalidone 25 mg tablet 25 mg PO DAILY 10/31/24 10/31/24 History methylprednisolone 4 mg tablet See Rx Instructions .Route 11/06/24 Rx .COMPLEX #8 tabs oxycodone-acetaminophen 7.5 mg-325 1 tab PO Q6H PRN 4 days #0 tabs 11/06/24 Rx mg tablet (Endocet) Hospital Stay Data Consultations 10/31/24 00:54 ED Decision to Admit Stat 10/31/24 08:25 Consult Orthopedic Surgery Routine 11/02/24 08:42 Consult Nephrology Routine Diagnostic Imagining Performed 10/30/24 21:32 CT shoulder RT wo con Stat Pending Results Patient Have Any Pending Studies at Discharge: No Discharge Instructions Given to Patient (Per Discharging Provider) You were admitted for right shoulder pain and aches, and found to have exercise induced rhabdomyolysis You were started on aggressive IV fluids and monitored closely You shoulder was evaluated by Orthopedics who did not suspect that there was any fracture or acute/emergent injury You were started on a steroid burst to help with inflammation as it sounds like suspected rotator cuff tear or strain You may require MRI in the future. Physical therapy is recommended if symptoms do not resolved Please continue the following steroid burst: Methylprednisolone 4 mg orally: 11/06: 1800 2099 0429: 0700, 1300, 2100 04: 0700,2099 05: 0700 Please take oxycodone 7.5-325 every 4-6 hours as needed for severe pain Please use tylenol 650 mg ever 6 hours for moderate pain Total Time Total Time Spent Total Time Spent (In Minutes): 45
[2024-11-07] MEDS ORDERED: methylPREDNISolone 4 MG TAB PO SCH (07:00)
[2024-11-08] MEDS ORDERED: methylPREDNISolone 4 MG TAB PO SCH (07:00)
[2024-11-09] MEDS ORDERED: methylPREDNISolone 4 MG TAB PO SCH (07:00)
== END 2024-11-06 15:28 | DRG 558 ==
LOC: ED 20:16 → 3E 10-31 01:48 → SUATTDRO 10-31 01:48 → 3E 10-31 02:19